=== PATIENT | male | born 1970 | race Caucasian/White ===

== ENCOUNTER 2017-04-06 16:06 | Outpatient (CLI) ==
[2014-04-11 18:17] VITALS: BMI 31.5
[2017-04-06 16:19] LABS: BASOPHILS # (AUTO) 0.1 K/uL (0-0.2); BASOPHILS % (AUTO) 0.6 % (0.0-3.0); EOSINOPHILS # (AUTO) 0.5 K/ul (0.0-0.7); EOSINOPHILS % (AUTO) 4.8 % (0.0-7.0); HEMATOCRIT 45.1 % (42.0-52.0); HEMOGLOBIN 15.6 g/dl (14.0-18.0); IMMATURE GRANULOCYTE % (AUTO) 0.2 % (0.0-5.0); LYMPHOCYTES # (AUTO) 2.7 K/uL (0.60-3.4); MEAN CORPUSCULAR HEMOGLOBIN 30.8 pg (27.0-31.0); MEAN CORPUSCULAR HGB CONC 34.6 (31.8-35.4); MEAN CORPUSCULAR VOLUME 89.1 fl (80.0-94.0); MONOCYTES # (AUTO) 0.7 K/uL (0.4-2.0); MONOCYTES % (AUTO) 6.5 (0-10); NEUTROPHILS # (AUTO) 6.1 K/ul (2.0-6.9); NEUTROPHILS % (AUTO) 60.9; PLATELET COUNT 217 10^3/uL (140-440); RED BLOOD COUNT 5.06 10^6/ul (4.70-6.10)
[2017-04-06 16:54] LABS: ALBUMIN 3.9 g/dL (3.4-5.0); ANION GAP 11.9; BILIRUBIN,TOTAL 0.47 mg/dL (0.00-1.20); BUN/CREATININE RATIO 21.95; CALCIUM 9.7 mg/dL (8.2-10.2); CHOL/HDL RATIO 7.1 (4.5-6.4); CREATININE 0.82 mg/dL (0.60-1.10); POTASSIUM 3.9 mmol/L (3.5-5.1); TOTAL PROTEIN 7.8 g/dL (6.4-8.2)
== END 2017-04-06 16:07 | disposition home or self-care (01) ==
LOC: LAB 16:06
PROVIDERS: ATTEND Emergency Medicine
DX: N52.8 Other male erectile dysfunction (principal); E66.9 Obesity, unspecified; F17.210 Nicotine dependence, cigarettes, uncomplicated
CPT/HCPCS: 36415; 80053; 80061; 84402; 84443; 85025

== ENCOUNTER 2018-03-08 12:00 | Outpatient (CLI) ==
[2014-04-11 18:17] VITALS: BMI 31.5
== END 2018-03-08 12:01 | disposition home or self-care (01) ==
LOC: LAB 12:00
PROVIDERS: ATTEND Emergency Medicine
DX: R07.2 Precordial pain (principal); E78.5 Hyperlipidemia, unspecified; E66.9 Obesity, unspecified; R79.89 Other specified abnormal findings of blood chemistry; N52.8 Other male erectile dysfunction
CPT/HCPCS: 36415; 80053; 80061; 84443; 85025; 85379; 93005; 93010